=== PATIENT | male | born 1960 | race African-American/Black ===

== ENCOUNTER 2016-06-20 17:59 | Emergency (ER) | payer SELFPAY ==
[~2016-06-20] VITALS: Ht 177.8 cm; Wt 86.2 kg
[~2016-06-20 17:59] MED LIST: COGENTIN; TRAZODONE
--- NOTE | 2016-06-20 18:07 | Emergency Room Report ---
Physical Exam Vital Signs Date Time Temp Pulse Resp B/P Pulse Ox O2 Delivery O2 Flow Rate FiO2 06/20/16 17:53 98.2 86 19 148/72 98 Room Air Medical Decision Making PA Attestation Dr. Nicolas is my supervising Physician whom patient management has been discussed with. ER Course Please see full ED note, disregard this addendum. Last Vital Signs Date Time Temp Pulse Resp B/P Pulse Ox O2 Delivery O2 Flow Rate FiO2 06/20/16 17:53 98.2 86 19 148/72 98 Room Air Valerie Kirkland Jun 20, 2016 18:07
--- NOTE | 2016-06-20 18:09 | Emergency Room Report ---
History of Present Illness General Chief Complaint: Alcohol Intoxication Source: EMS Present Illness HPI 55 YO male presents emergency department stating he does not have any medical complaints other than nausea at this time. Patient reports that he had been drinking earlier. Patient states he does not want to emergency medical treatment or further evaluation. He is asking for food and to go home. Denies CP, Palpitations, LOC, AMS, dizziness, Changes in Vision, Sensation, paresthesias, or a sudden severe headache. Patient reports past medical history of manic depression and states that he takes Lamictal and Cogentin. Allergies: Coded Allergies: No Known Allergies (Unverified , 08/23/12) Patient History Past Medical History: see triage record Past Surgical History: none Pertinent Family History: none Reviewed Nursing Documentation: PMH: Agreed, PSxH: Agreed Nursing Documentation-PMH Past Medical History: No Stated History Review of Systems All Other Systems: limited - poor pt. cooperation Physical Exam Vital Signs Date Time Temp Pulse Resp B/P Pulse Ox O2 Delivery O2 Flow Rate FiO2 06/20/16 17:53 98.2 86 19 148/72 98 Room Air Sp02 EP Interpretation: reviewed, normal General Appearance: no apparent distress, alert, GCS 15, non-toxic Eyes: bilateral eye PERRL Respiratory: other - pt declined ascultation of heart and lungs. Cardiovascular #1: other - pt declined ascultation of heart and lungs. Gastrointestinal: non tender, soft, no mass, non-distended Rectal: deferred Musculoskeletal: gait/station normal, normal range of motion Neurologic: oriented x3, cerebellar normal, normal gait Psychiatric: no suicidal/homicidal ideation, other - -pt is poorly cooperative for evaluation, asks to be d/c'd. pt. began verbally aggressive at nurses station demanding food, and was argumentative and threatened multiple staff members, ultimately requiring windows security engineer out. Skin: normal color, no rash Medical Decision Making PA Attestation Dr. Nicolas is my supervising Physician whom patient management has been discussed with. Diagnostic Impression: Primary Impression: Acute alcoholic intoxication Qualified Codes: F10.120 - Alcohol abuse with intoxication, uncomplicated Additional Impression: Encounter for medical screening examination ER Course 55 YO male presents emergency department stating he does not have any medical complaints other than nausea at this time. Patient reports that he had been drinking earlier. Patient states he does not want to emergency medical treatment or further evaluation. He is asking for food and to go home. Denies CP, Palpitations, LOC, AMS, dizziness, Changes in Vision, Sensation, paresthesias, or a sudden severe headache. Patient reports past medical history of manic depression and states that he takes Lamictal and Cogentin. pt. is NAD, pt. is alert, no obvious signs of trauma, able to ambulate to [facility] and around the treatment room. Ddx considered but are not limited to ETOH, Trauma, Syncope, dementia, OD Vital signs: are WNL, pt. is afebrile H&PE are most consistent with ETOH abuse.and Refusal of ED care/treatment. limited PE was WNL. ORDERS: none required at this time, pt refuses further evaluation. ED INTERVENTIONS: Pt. refuses full ED evaluation. -pt is poorly cooperative for evaluation, asks to be d/c'd. pt. began verbally aggressive at nurses station demanding food, and was argumentative and threatened multiple staff members, ultimately requiring windows security engineer out. DISCHARGE: At this time pt. is stable for d/c to home. Will provide printed patient care instructions, and any necessary prescriptions. Care plan and follow up instructions have been discussed with the patient prior to discharge. Last Vital Signs Date Time Temp Pulse Resp B/P Pulse Ox O2 Delivery O2 Flow Rate FiO2 06/20/16 17:53 98.2 86 19 148/72 98 Room Air Disposition: HOME, SELF-CARE Condition: Stable Patient Instructions: Alcohol Intoxication, [id number] Additional Instructions: Take medications as directed. Follow up with PCP in 3-5 days Return sooner to ED if new symptoms occur, or current symptoms become worse. Do not drink alcohol. *!* Review provided list of free or reduced cost health clinics for follow up * !* - Please note that this Emergency Department Report was dictated using [employer] specialist technology software, occasionally this can lead to erroneous entry secondary to interpretation by the dictation equipment. Valerie Kikrland Jun 20, 2016 18:09
[2016-06-20 18:36] VITALS: BP 138/70
== END 2016-06-20 18:41 | disposition home or self-care (01) ==
LOC: EDBD 17:59 → EMR 18:13
DX: F10.129 Alcohol abuse with intoxication, unspecified (principal)
CPT/HCPCS: 99284